=== PATIENT | female | born 1980 | race Caucasian/White ===

== ENCOUNTER 2019-07-29 18:50 | Emergency (ER) | payer SELFPAY ==
[~2019-07-29] VITALS: Ht 152.4 cm; Wt 61.2 kg
[2019-07-29 19:08] VITALS: Ht 152.4 cm; Wt 61.2 kg
[2019-07-29 20:35] VITALS: BP 141/98
== END 2019-07-29 20:35 | disposition home or self-care (01) ==
LOC: ED 18:50
DX: S42.352A Displaced comminuted fracture of shaft of humerus, left arm, initial encounter for closed fracture (principal); I10 Essential (primary) hypertension; W18.30XA Fall on same level, unspecified, initial encounter; Y93.89 Activity, other specified; Y92.89 Other specified places as the place of occurrence of the external cause; Y99.8 Other external cause status

== ENCOUNTER 2020-05-30 07:37 | Emergency (ER) | payer OTHER ==
[~2020-05-30] VITALS: Ht 152.4 cm; Wt 59.9 kg
[2020-05-30 07:46] VITALS: Ht 152.4 cm; Wt 59.9 kg
[2020-05-30 10:56] VITALS: BP 158/114
== END 2020-05-30 10:56 | disposition home or self-care (01) ==
LOC: ED 07:37
DX: F10.10 Alcohol abuse, uncomplicated (principal); F41.9 Anxiety disorder, unspecified; I10 Essential (primary) hypertension; F14.10 Cocaine abuse, uncomplicated; S60.222A Contusion of left hand, initial encounter; S60.221A Contusion of right hand, initial encounter; Y04.8XXA Assault by other bodily force, initial encounter; Y93.89 Activity, other specified; Y92.89 Other specified places as the place of occurrence of the external cause; Y99.8 Other external cause status

== ENCOUNTER 2020-06-13 22:55 | Emergency (ER) | payer OTHER ==
[~2020-06-13] VITALS: Ht 167.6 cm; Wt 59.9 kg
[2020-06-13 23:05] VITALS: Ht 167.6 cm; Wt 59.9 kg
[2020-06-13 23:33] LABS: BASOPHIL % 1.1 % (0.2-1.3); PLATELET COUNT 436 x10^3mcL (179-408); RED CELL DISTRIBUTION WIDTH 14.2 % (12.3-17.7)
[2020-06-13 23:45] LABS: CALCIUM 8.4 mg/dL (8.5-10.1); CARBON DIOXIDE 33.8 mmol/L (21-32); CHLORIDE SERUM 102 mmol/L (98-107); CREATININE SERUM 0.7 mg/dL (0.6-1.0); GFR1 > 60 mL/min; GLUCOSE SERUM 103 mg/dL (74-106); POTASSIUM SERUM 3.5 mmol/L (3.5-5.1); SODIUM SERUM 140 mmol/L (136-145)
[2020-06-13 23:49] LABS: ALKALINE PHOSPHATASE 69 U/L (46-116); ALT/SGPT 36 U/L (14-59); AST/SGOT 29 U/L (15-37); BILIRUBIN TOTAL 0.2 mg/dL (0.20-1.00); LIPASE 119 IU/L (73-393); TOTAL PROTEIN, SERUM 7.1 g/dL (6.4-8.2)
[2020-06-13 23:50] LABS: ALBUMIN 3.3 g/dL (3.4-5.0)
[2020-06-14] MEDS ORDERED: ATIVAN0.5 M1 PO (00:46)
[2020-06-14 01:04] VITALS: BP 116/65
== END 2020-06-14 01:25 | disposition home or self-care (01) ==
LOC: ED 22:55
PROVIDERS: Emergency Medicine
DX: F10.239 Alcohol dependence with withdrawal, unspecified (principal); I10 Essential (primary) hypertension
CPT/HCPCS: J2060; J2405; J7030

== ENCOUNTER 2020-06-28 03:55 | Emergency (ER) | payer OTHER ==
[~2020-06-28] VITALS: Ht 152.4 cm; Wt 59.0 kg
[~2020-06-28 03:55] MED LIST: ATIVAN0.5 M1 PO
[2020-06-28 04:21] VITALS: Ht 152.4 cm; Wt 59.0 kg
[2020-06-28 05:13] LABS: BASOPHIL % 1.4 % (0.2-1.3); RED CELL DISTRIBUTION WIDTH 14.2 % (12.3-17.7)
[2020-06-28 05:23] LABS: PLATELET COUNT 402 x10^3mcL (179-408)
[2020-06-28 05:48] LABS: CALCIUM 8.6 mg/dL (8.5-10.1); CARBON DIOXIDE 31.4 mmol/L (21-32); CHLORIDE SERUM 101 mmol/L (98-107); CREATININE SERUM 0.7 mg/dL (0.6-1.0); GFR1 > 60 mL/min; GLUCOSE SERUM 107 mg/dL (74-106); POTASSIUM SERUM 3.8 mmol/L (3.5-5.1); SODIUM SERUM 139 mmol/L (136-145)
[2020-06-28 05:52] LABS: ALBUMIN 3.5 g/dL (3.4-5.0); ALKALINE PHOSPHATASE 77 U/L (46-116); ALT/SGPT 34 U/L (14-59); AST/SGOT 26 U/L (15-37); BILIRUBIN TOTAL 0.2 mg/dL (0.20-1.00); TOTAL PROTEIN, SERUM 7.5 g/dL (6.4-8.2)
[2020-06-28 06:05] LABS: AMPHETAMINE QUAL UR NONE DETECTED (See below)
[2020-06-28 06:07] LABS: UA SPECIFIC GRAVITY 1.015 (1.005-1.035); microscopic required? YES; urine erythrocyte 2+ (NEGATIVE)
[2020-06-28 07:53] VITALS: BP 134/81
== END 2020-06-28 07:45 | disposition home or self-care (01) ==
LOC: ED 03:55
PROVIDERS: Emergency Medicine
DX: F10.10 Alcohol abuse, uncomplicated (principal); F14.10 Cocaine abuse, uncomplicated; I10 Essential (primary) hypertension; F41.9 Anxiety disorder, unspecified
CPT/HCPCS: G0480; J2060; J7030